=== PATIENT | female | born 1930 | race Caucasian/White ===

== ENCOUNTER → 2016-11-29 | Outpatient (CLI) | payer OTHER, MEDICARE ==
[~2016-11-29] VITALS: Ht 167.6 cm; Wt 69.1 kg
[~2016-11-29] MED LIST: ASPIRIN EC81 M1 PO; CALCIUM OYSTER500 MG PO; COUMADIN 2.5MG2.5 M1 PO; CRESTOR20 MG PO; FISH OIL 1,001000 MG PO; HYDROCHLOROTH12.5 M1 PO; HYDROCHLOROTH12.5 MG PO; IMITREX 50 MG T50 M1 PO; LEVOTHYROXINE0.05 MG PO; MULTI VITAMIN1 EACH PO; MYRBETRIQ25 MG PO; NEXIUM40 MG PO; NORCO 5-325 TA1 EACH PO; ONE DAILY COMP1 EAC1 PO; OXYBUTYNIN 5 MG5 M2 PER TUBE; PERCOCET 5-3251 EACH PO; POTASSIUM CHLO20 ME2 PO; PRESERVISION T1 EACH PO; PROPOXY-N/APAP1 TAB PO; PROTONIX40 M1 PO; ROXICODONE5 MG PO; SANCTURA XR60 M1 PO; SYNTHROID50 MCG PO; TRAMADOL 50 MG50 MG; TRAMADOL 50 MG50 MG PO; VERAPAMIL ER180 M1 PO; VERAPAMIL HCL120 M1 PO; VERAPAMIL SR180 MG PO; VITAMIN D31000 UNI2 PO; ZOLOFT 50 MG TA50 M1 PO
--- NOTE | ~2016-11-29 | HPC ---
[facility] [place] [place] [address] [place] [address] PAIN MANAGEMENT CONSULTATION Name: ANGELA BAE Room #: REG [facility] Denzel.#: [id number] Admission: 11/29/16 Attend Phys: Eric Vaughn DO Discharge: Date of : 29 Report #: [id number] THIS REPORT FOR: //name// CC: Eric Tobar MD DATE OF SERVICE: 11/29/2016 DATE OF SERVICE: 11/29/2016 CHIEF COMPLAINT: Low back pain, lower extremity pain with paresthesias. HISTORY OF PRESENT ILLNESS: As you know, patient is an 86-year-old female, who returns today in followup visit requesting to undergo next in the series of epidural injections. The patient indicates pain is exacerbated with activity, standing, sitting, walking. It improves with repositioning, lying down, elevating legs and epidural injections. She is now placing pain score at 8/10. States the pain is mainly in the low back radiating into the legs and right groin area. Previous injection was reportedly providing good analgesic benefit up to 60%. She returns today requesting next in a series of epidural injections. Her INR today is 1.0 in preparation for today's injection. ALLERGIES: No known drug allergies. CURRENT MEDICATIONS: Potassium chloride 40 mEq twice a day, pantoprazole 40 mg per day, hydrocodone 5/325 one tab every 8 hours p.r.n. for pain, vitamin supplementation 1 tab per day, verapamil 180 mg twice a day, hydrochlorothiazide 12.5 mg once a day, lovastatin 20 mg per day, warfarin 2.5 mg 2 tabs once a day, omega-3 fish oil 1 tab per day, cholecalciferol 2000 units once a day, levothyroxine 50 mcg per day. SOCIAL HISTORY: The patient denies tobacco, alcohol, IV or illicit drug use. She is retired. retired years ago, accompanied by her daughter. IMAGING: No new imaging available. PHYSICAL EXAMINATION: VITAL SIGNS: Blood pressure 150/81, pulse 79, respiratory rate 20, unlabored. The patient is 96% on room air, height 5 feet 6 inches tall, weight 152.4 pounds, BMI calculated 24.6. GENERAL: Well developed, well nourished, well hydrated 86-year-old female appearing her stated age. Pain is rated around 8-9/10. HEENT: Normocephalic, atraumatic. Pupils equal, round, reactive to light. The patient is deemed a very poor historian. EXTREMITIES: Show no clubbing, no cyanosis, no edema. [address] [address] PAIN MANAGEMENT CONSULTATION Name: ANGELA BAE Krishan Room #: REG [facility]#: [id number] Admission: 11/29/16 Attend Phys: Eric Vaughn DO Discharge: Date of : 29 Report #: [id number] MUSCULOSKELETAL: Lower extremity strength is diminished due to deconditioning. Seated straight leg raising negative. Supine straight leg raising mildly positive. Kylah's test is negative. Modified Gaenslen's positive for axial low back pain. ASSESSMENT: 1. Symptomatic lumbar radiculopathy. 2. Spinal stenosis of lumbar spine. 3. Lumbosacral spondylosis with radicular symptoms. 4. Lumbar degeneration. 5. Chronic intractable pain. PLAN: 1. The patient returns today in followup visit having discontinued her Coumadin in preparation for an epidural injection. She reports good efficacy up to 60% improvement with previous injections. She returns today hoping to undergo procedure today to improve pain. She was advised risks and benefits of the procedure, states she understood and wished to proceed. 2. The patient will restart her Coumadin starting this evening and then return to normal dosing of her Coumadin starting tomorrow. We had no concerns of bleeding after the procedure. She has done very well. She will follow up with the PCP in regards to Coumadin management. 3. We will see the patient back in followup visit on an as needed basis for possible repeat injection. PROCEDURE NOTE DESCRIPTION OF PROCEDURE: Lumbar epidural steroid injection under fluoroscopic guidance. This is the first procedure of the second series that the patient is undergoing. After obtaining written consent, the patient was taken back to the fluoroscopy suite, placed in a prone position with pillow under the abdomen to decrease lumbar lordosis. The skin overlying the lumbosacral area was then prepped and draped in aseptic fashion. The lumbar vertebral interspace was then identified by AP fluoroscopy. The skin and subcutaneous tissue overlying the target site of injection was anesthetized with 3 mL 1% lidocaine. A 20-gauge 3-1/2 inch Tuohy needle was then advanced under fluoroscopic guidance towards the epidural space using a right paramedian approach. The epidural space was identified using loss of resistance to air technique. After negative aspiration for heme or cerebrospinal fluid, a total of 1 m L of Omnipaque was injected. A lumbar epidurogram was confirmed using both AP and lateral fluoroscopy. After negative aspiration for heme or cerebrospinal fluid, 5 mL of a solution containing 2 mL 40 mg per mL, 80 mL total triamcinolone, 3 mL of [facility] [address] [place] [address] PAIN MANAGEMENT CONSULTATION Name: ANGELA BAE Room #: REG CLI Denzel#: [id number] Admission: 11/29/16 Attend Phys: Eric Vaughn DO Discharge: Date of : 29 Report #: [id number] lidocaine 1% was injected in increments. Contrast spread was noted posterior epidural space. The needle was then retracted approximately half way and needle tract flushed with 1 mL of 1% lidocaine. Needle was then removed. There were no apparent sensory or motor deficits in the lower extremity following the procedure. A sterile bandage was placed over the injection site. The heart rate, pulse, oximetry and blood pressure were continuously monitored after the procedure. There were no apparent complications. The patient tolerated the procedure well and was carefully escorted to the recovery room in stable condition. There were no apparent complications. After meeting discharge criteria, the patient was then discharged home. By: [id number] Eric Vaughn DO /nt
[2016-11-29 09:59] LABS: PROTIME 10.8 Seconds (9.3-11.4)
[2016-11-29 10:32] VITALS: BP 158/81
== END | disposition home or self-care (01) ==
LOC: PAIN 11-08 06:58
PROVIDERS: Anesthesiology Pain Medicine
DX: M54.16 Radiculopathy, lumbar region (principal); G89.29 Other chronic pain

== ENCOUNTER → 2016-12-20 | Outpatient (CLI) | payer OTHER, MEDICARE ==
[~2016-12-20] VITALS: Ht 167.6 cm; Wt 65.8 kg
--- NOTE | ~2016-12-20 | P ---
[facility] [place] [address] [place] [address] PROCEDURE REPORT Name: ANGELA BAE Room #: REG Elaina Sims#: [id number] Admission: 12/20/16 Attend Phys: Eric Vaughn DO Discharge: Date of : 29 Report #: [id number] THIS REPORT FOR: //name// CC: Eric Tobar MD DATE OF SERVICE: 12/20/2016 DESCRIPTION OF PROCEDURE: Left intraarticular knee injection under fluoroscopic guidance. After obtaining written consent, the patient was taken back to fluoroscopy suite, placed in supine position with pillows underneath for comfort. The image intensifier was then brought into the position directly over the left knee and an AP imaging was obtained. A sterile marker was then used to svitlana the lateral portion of the knee at the joint line. We then prepped and draped the patient in aseptic fashion using chlorhexidine. A 27-gauge 1-1/4-inch needle was used to anesthetize skin and subcutaneous tissue with 2 mL of 1% lidocaine. A 25-gauge 2-inch needle was advanced under fluoroscopic guidance into the left knee joint under direct visualization. After entering the joint, aspiration was noted negative for heme, 0.4 mL of Omnipaque was injected. An excellent arthrogram was noted. After negative aspiration for heme, 3 mL of a solution containing 1 mL 40 mg per mL 40 mg total triamcinolone, 2 mL bupivacaine 0.5% injected slowly. Needle retracted correction, flushed with 0.5 mL of 0.5% bupivacaine and removed. Sterile bandage placed over injection site. The patient tolerated procedure well, carefully escorted to the recovery room in stable condition. No apparent complications. After meeting discharge criteria, the patient discharged home. By: [id number] Eric Vaughn DO /nt
--- NOTE | ~2016-12-20 | HPC ---
[facility] [address] [place] [address] PAIN MANAGEMENT CONSULTATION Name: ANGELA BAE Room #: REG DESTINYElaina Sims#: [id number] Admission: 12/20/16 Attend Phys: Eric Vaughn DO Discharge: Date of : 29 Report #: [id number] THIS REPORT FOR: //name// CC: Eric Tobar MD DATE OF SERVICE: 12/20/2016 CHIEF COMPLAINT: Bilateral knee pain. HISTORY OF PRESENT ILLNESS: As you know, the patient is an 86-year-old somewhat confused female who returns today in followup visit with her granddaughter to discuss bilateral knee pain. As you are aware, the patient has had a total right knee arthroplasty, so treatment in that area would be impossible. She continues to experience left knee pain, which appears to be arthritic in nature. There is a significant amount of swelling around the knee itself. She also complains of bilateral shoulder pain, low back pain and midthoracic pain, intermittent hand pain and bilateral foot pain. The patient, I believe by my examinations of late, appears to be suffering from what we classically call "dementia pain." She returns today with generalized ovarian pain with 9 different pain generators being discussed throughout today's evaluation. She is placing her pain score today at 6/10. All activities exacerbate symptoms, standing, sitting, walking and doing anything exacerbates some of or all of her pain generators. Repositioning, lying down with her legs elevated appear to improve pain. She has returned because of bilateral knee pain. ALLERGIES: No known drug allergies. CURRENT MEDICATIONS: Potassium chloride, pantoprazole, hydrocodone, vitamin supplementation, verapamil, hydrochlorothiazide, lovastatin, warfarin, omega 3 fish oil, cholecalciferol, levothyroxine. SOCIAL HISTORY: The patient denies tobacco, alcohol, IV or illicit drug use. She is retired. retired years ago, accompanied by her granddaughter. IMAGING: No new imaging available. LABORATORY DATA: INR is 1.0. PHYSICAL EXAMINATION: VITAL SIGNS: Blood pressure 186/77, pulse 80, respiratory rate 14, unlabored. The patient is 98% on room air, height 5 feet 6 inches tall, weight 145 pounds, BMI calculated 23.4. GENERAL: Well developed, well nourished, well hydrated, confused, but pleasant 86-year-old female appearing stated age, placing current pain score 6/10. [address] [address] PAIN MANAGEMENT CONSULTATION Name: ANGELA BAE Room #: REG CLI [facility]#: [id number] Admission: 12/20/16 Attend Phys: Eric Vaughn DO Discharge: Date of : 29 Report #: [id number] HEENT: Normocephalic, atraumatic. Pupils equal, round, reactive to light. Extraocular muscles are intact. The patient is a very poor historian. EXTREMITIES: Show no clubbing, no cyanosis, no edema. MUSCULOSKELETAL: The patient has palpatory tenderness over the left knee. There is some edema surrounding the lower portion of the patellar area as well as in the popliteal fossa. Deep palpation of the area causes intensification of pain. Active and passive range of motion intensifies left knee pain. Standing from seated position also exacerbates left knee pain. Right knee well-healed surgical scar, pain is elicited with standing, also pain is reported with active and passive range of motion. ASSESSMENT: 1. Bilateral knee pain. 2. Osteoarthritis of the left knee. 3. Chronic lumbar radiculopathy. 4. Severe and progressively worsening spinal stenosis of lumbar spine. 5. Lumbar degeneration. 6. Chronic intractable pain. PLAN: 1. The patient returns today in followup visit reporting 9 different pain generators. Her major concern today is of the bilateral knee pain she has been experiencing. She denies any radiation of symptoms from the back, buttock or posterolateral thigh towards the knee. She is able to place pain directly over her knees bilaterally. Unfortunately, we can effect no change management facilitator the patient's right knee as she has had a total knee arthroplasty. I would recommend that we do an x-ray of that right knee to confirm placement of the hardware, but does not appear to have any issues with this at this time. We will certainly take a picture of this if the patient wishes and we can discuss the findings once this has been completed. The patient was amenable and did wish to undergo this imaging. We took 1 fluoroscopic image of her right knee, appears to be alignment is good. There does not appear to be any malalignment of the hardware. 2. In regards to patient's left knee pain, we have discussed an intra-articular knee injection. This would be helpful for an arthritic knee. The patient does have a significant amount of pain with active and passive range of motion of the left knee. We will have the patient undergo left knee injection under fluoroscopic guidance to determine how much of her pain is generated from the knee itself. Again, I am unable to elicit any radiation of symptoms from the back to the knee. The patient is able to localize pain at the lower portion of the knee and both medial and lateral. Pain is elicited with standing from seated position, which would confirm arthritic changes as a potential source. She has been advised risks and benefits of an intraarticular knee injection, states she understood and wished to proceed. 3. The patient and I did discuss today our concern about her underlying decrease in mentation. It does appear the patient is beginning to suffer from [facility] [address] [place] [address] PAIN MANAGEMENT CONSULTATION Name: ANGELA BAE Room #: REG KEVIN [facility]#: [id number] Admission: 12/20/16 Attend Phys: Eric Vaughn DO Discharge: Date of : 29 Report #: [id number] increasing dementia. It is not unusual to have patients with decreasing mental acuity have difficulty with multiple pain generators; typically, they have the lack of capability of regulating and perceiving pain as they become less and less capable of high functioning interpretation. It is fairly typical to see patients that will begin complaining of minor pain generators as major contributors to pain. Typically distraction techniques were very well to determine if this is the source the patient is showing signs that she is having difficulty with the perception of pain in that she is easily distracted. When describing her right knee pain, she indicates the pain is present all of the time. When I discussed other areas of pain, she indicates that her knee pain is not present, but her shoulder pain is more intense. I believe that she is suffering from this difficulty with perception of pain and this may make it quite difficult to treat the patient from a standpoint of injection therapies further. She may be more of a candidate for low dose opioids for which she is currently on. We will discuss this with family members at followup visit. I did take the time to discuss this with the granddaughter today who is going to pass this on to family members as well. We will keep you apprised of further discussions. By: [id number] Eric Vaughn DO /nt
[2016-12-20 11:07] VITALS: BP 186/77
== END | disposition home or self-care (01) ==
LOC: PAIN 12-13 09:18
PROVIDERS: Anesthesiology Pain Medicine
DX: M17.12 Unilateral primary osteoarthritis, left knee (principal); M54.16 Radiculopathy, lumbar region; M48.06 Spinal stenosis, lumbar region; M51.36 Other intervertebral disc degeneration, lumbar region; G89.29 Other chronic pain